=== PATIENT | male | born 1980 | race Caucasian/White ===

== ENCOUNTER 2024-10-14 12:21 | Emergency (ER) | payer OTHER, SELFPAY ==
[2024-10-14 12:24] VITALS: BP 131/86; PULSE 86; RESP 16; TEMP 36.9; O2SAT 97; BMI 33.7
--- OUTSIDE RECORDS SUMMARY | 2024-10-14 12:28 | XMS_ITS | Clinical Summary ---
Author Organization [facility] Address Unknown Care Team Providers Care Hand Stone Polisher Name Role Phone Jesse Pollack Primary Care Physician [phone] Allergies, Adverse Reactions, Alerts Substance Reaction Status Noted Date Resolved Date simvastiin Active morphine Active Pregabalin Active Penicillins Active Lyrica Active Imitrex Active Medications Medication Dose Frequency Directions Start Date End Octaviano e dicyclomine 0 1 capsule two t imes a day for 10 days promethazine 14 TAKE ONE TABLET BY MOUTH TWICE DAILY NEEDED FOR nausea Metronidazole 0 twice a day Take tablet by mouth twice a day cyproheptadine 0 1 tablet qd ondansetron 20 TAKE ONE TABLET BY MOUTH UNDER THE TONGUE EVERY 6 HOURS omeprazole 0 1 capsule qd cefdinir 0 1 capsule q 12 hrs for 7 days olanzapine 0 1 tablet qd promethazine 0 every six hours Take 1 table t by mouth every six hours as needed prazosin 0 1 capsule qd Problems Problem Status Start Date End Date Colitis (K59.9 - ICD-10) Active 09/22/2024 Early Satiety (R68.81 - ICD-10) Active Epigastric abdominal pain (R10.13 - ICD-10) Active Epigastric fullness (R19.8 - ICD-10) Active First degree hemorrhoids (K64.0 - ICD-10) Active 09/22/2024 Hx SBO (Z87.19 - ICD-10) Active LLQ abdominal pain (R10.32 - ICD-10) Active Nausea with Vomiting (R11.2 - ICD-10) Active Personal history of hyperpla stic colon polyps (Z86.0102 - ICD-10) Active Polyp of colon (K63.5 - ICD-10) Active Poor Prep (Z53.8 - ICD-10) Active RLQ abdominal pain (R10.31 - ICD-10) Active Anemia Anxiety/Depression Colon Polyps Gastroparesis GERD or reflux disease Hiatal hernia (K44.9 - ICD-10) PTSD Results * Pathology results from [facility] Component Value Range Date 001 SEE NOTES 09/22/2024 11:5 9 am PDT Encounters Encounter Performer Performer Role Encounter Diagnoses Location Date Consultation [id number] Sierra [id number] - Rose Dennis Epigastric fullness Hx SBO Nausea with Vomiting Personal history of hyperplastic colon polyps Poor Prep Early Satiety LLQ abdominal pain Epigastric abdominal pain RLQ abdominal pain [facility] [place] 09/22/19 08:30 am PDT Ambulatory Encounter [id number] Torres [place] 09/22/[place] 09:13 am PDT Ambulatory Encounter [id number] 09/22/19 09:14 am PDT Ambulatory Encounter [id number] [facility] 09/22/19 09:14 am PDT Colonoscopy [id number] Torres Colitis Polyp of colon First degree hemorrhoids [facility] 09/23/19 10:20 am PDT Ambulatory Encounter [id number] Sierra [facility] [address] 10/03/19 01:41 pm PDT Advance Directives Directive Description Verification Elise Bhagat , 09/22/2024 Procedures Procedure Date Appendectomy/Appendix bowel obstruction surgery Cholecystectomy/Gallbladder Hernia Repair kidney stones removed tonsillectomy Plan of Care Planned Activity Planned Date Dr. Villanueva spoke with and examined patie nt. Gastric Emptying Scan// FLOW [facility]// September @7:00AM// NPO INST, NO PAIN OR PPI 48 HRS PRIOR// BMI 34.21 Here today for ongoing abdom inal pain which he felt was better managed on Bupropion, defer this to mental health specialist. We will repeat Colonoscopy due to poor prep on last exam in January. We will schedule a GES for early satiety and nausea with vomiting. Follow up will be determined after procedure. Gastric Emptying Scan Pathology Requisition - [facility] Follow up path results. Follow up with Marleni HASTINGS in one month 10/22/2024 10:00 pm PDT Colonoscopy([id number]) Colonoscopy in 3 years 09/22/2027 10:00 pm PDT Colonoscopy([id number]) // [facility] // September 2:00PM// PREP RX GIVEN// BMI 34.21 Social History Observation Value Start Date End Date Marital Status Number of Previous Marriages Number of Gestations 0 Number of Pregnancies 0 Number of Abortions 0 Tobacco Use Current every day smoker Vital Signs Vital Sign Reading Time Taken Pulse 83 /min 09/22/2024 12:10 pm PDT Rhythm 09/22/2024 12:10 pm PDT Body Temperature [degF] 09/22/2024 12:1 0 pm PDT Respirations 18 /min 09/22/2024 12:10 pm PDT Oxygen saturation 96 % 09/22/2024 12: 10 pm PDT [id number] mmHg 09/22/2024 12:10 pm PDT Height 66 in 10/02/2024 01:41 pm PDT Weight 0 lbs 10/02/2024 01:41 pm PDT BMI (Body Mass Index) kg/m2 10/02/2024 01:41 pm PDT BP Systolic 137 mm[hg] 09/22/2024 12:10 pm PDT BP Diastolic 56 mm[hg] 09/22/2024 12:10 pm PDT Insurances Policy / Member / Group Numbers Plan Details Company Policy [place] [id number] / / Plan Type:Medicare Coverage Type:Primary [place] [employer] JULIAN ARCHIBALD
--- OUTSIDE RECORDS SUMMARY | 2024-10-14 12:28 | XMS_ITS | Clinical Summary ---
Author Organization [facility] Address Unknown Care Team Providers Care Window Maker Name Role Phone Unavailable Primary Care Physician Unavailab le Allergies, Adverse Reactions, Alerts Substance Reaction Status [...] Performer Role Encounter Diagnoses Location Date Consultation [id number] - Villanueva, Clint [id number] - Rose Dennis Epigastric fullness Hx SBO Nausea with Vomiting Personal history of hyperplastic colon polyps Poor Prep Early Satiety LLQ abdominal pain Epigastric abdominal pain RLQ abdominal pain [facility] [place] 09/22/19 08:30 am PDT Ambulatory Encounter [id number] Clint Chandra [place] 09/22/19 09:13 am PDT Ambulatory Encounter [id number] Clint Chandra [place] 09/22/19 09:14 am PDT Ambulatory Encounter [id number] [facility] 09:14 am PDT Colonoscopy [id number] Torres Colitis Polyp of colon First degree hemorrhoids [facility] 09/23/19 10:20 am PDT Ambulatory Encounter [id number] Sierra [facility] [address] 10/03/19 01:41 pm PDT Chief Complaint Abdominal pain Advance Directives Directive Description Verification Elise Bhagat , 09/22/2024 Procedures Procedure Date Appendectomy/Appendix bowel obstruction surgery Cholecystectomy/Gallbladder Hernia Repair kidney stones removed tonsillectomy Review Of Systems Constitutional: Denies of chronic f atigue, fever, weight loss. Integumentary: Denies of bruising, rash. Hematologic/Lymphatic: Denies of anemia , blood disorders, easy bleeding. Musculoskeletal: Denies of weakness, back pain, joint pain. ENMT: Denies of deafness, dizziness, mouth or throat sores, hoarseness. Respiratory: Denies of asthma, w heezing, cough, shortness of breath. Cardiovascular: Denies of chest yaya n, palpitations. Gastrointestinal: Complains of diar isael , constipation , heartburn , stomach cramps , nausea , vomiting , blood in stool , blood on the tissue paper , bloating , gas , trouble swallowing , abdominal pain . Denies of jaundice. Genitourinary: Complains of pablo ge in urine color , prostate problems . Denies of increased urinary frequency. Neurological: Denies of stroke, n umbness. Psychiatric: Complains of bad nerves , depression . . Physical Exam Constitutional: Appearance: Communication: communicates clearly , understands and verbalizes in Lao. Skin: Inspection: Palpation: no induration or sub cutaneous nodules noted in abdominal area. Eyes: Conjunctivae/lids: Pupils/irises: no scleral icterus. ENMT: External: Hearing: able to hear appropr iately. Lips/teeth/gums: moist mucus membrane s, lips and gums appear normal,good dentition. Oropharynx: normal tongue, hard and soft palate; posterior pharynx without erythema, exudate or lesions. Neck: Neck: Thyroid: no thyromegaly or ma sses visualized. Respiratory: Effort: Auscultation: no wheezes, rales or rhonchi,normal breath sounds,no rub noted. Cardiovascular: Auscultation: Peripheral: no edema,no varicosi ties or cyanosis. Gastrointestinal/Abdomen: Abdomen: Liver/Spleen: no ascites detected, no hepatosplenomegaly. Hernias: no hernias appreciat ed. Rectal: deferred. Extremities: RLE: LLE: Intact. Psychiatric: Judgment/insight: Orientation: appears to be orient ed to time, place and person. Memory: memory appears intac t, able to answer questions appropriately. Mood and affect: mood and affect appr opriate. Plan of Care Planned Activity Planned Date Dr. Villanueva spoke with and examined patie nt. Gastric Emptying Scan// FLOW [facility]// September @7:00AM// NPO INST, NO PAIN OR [...] Follow up will be determined after procedure. Follow up path results. Gastric Emptying Scan Pathology Requisition - [facility] Follow up with Marleni HASTINGS in one month 10/22/2024 10:00 pm PDT Colonoscopy([id number]) // [facility] // September 2:00PM// PREP RX GIVEN// BMI 34.21 Colonoscopy([id number]) Colonoscopy in 3 years 09/22/2027 10:00 pm PDT Social History Observation Value Start Date End [...] 96 % 09/22/2024 12: 10 pm PDT [id number] mmHg 09/22/2024 12:10 pm PDT Height 66 in 10/02/2024 01:41 pm PDT Weight 0 lbs 10/02/2024 01:41 pm PDT BMI (Body Mass Index) kg/m2 10/02/2024 01:41 pm PDT BP Systolic 137 mm[hg] 09/22/2024 12:10 pm PDT BP Diastolic 56 mm[hg] 09/22/2024 12:10 pm PDT Insurances Policy / Member / Group Numbers Plan Details Company Policy [employer] [id number] / / Plan Type:Medicare Coverage Type:Primary [place] CC[place] [employer] JULIAN ARCHIBALD
--- OUTSIDE RECORDS SUMMARY | 2024-10-14 12:28 | XMS_ITS | Clinical Summary ---
Author Organization [facility] Address Unknown Care Team Providers Care Stringed Instrument Repairer Name Role Phone Jesse Pollack Primary Care Physician [phone] Allergies, Adverse Reactions, Alerts Substance Reaction Status Noted Date Resolved Date simvastiin Active morphine Active Pregabalin Active Penicillins Active Lyrica Active Imitrex Active Medications Medication Dose Frequency Directions Start Date End Octaviano e oxycodone-acetaminoph en 12 1 tablet qd Levsin 50 tablet Take 1 tablet b y mouth every 4 hours as needed for pain or diarrhea. promethazine 14 TAKE ONE TABLET BY MOUTH TWICE DAILY NEEDED FOR nausea ondansetron 20 TAKE ONE TABLET BY MOUTH UNDER THE TONGUE EVERY 6 HOURS omeprazole 0 1 capsule qd prazosin 0 1 capsule qd Levsin 120 tablet Take 1 tablet b y mouth every 4 hours as needed for pain or diarrhea. 10/10/2024 dicyclomine 0 1 capsule two times a day for 10 days Metronidazole 0 twice a day Take tablet by mouth twice a day cyproheptadine 0 1 tablet qd cefdinir 0 1 capsule q 12 hrs for 7 days olanzapine 0 1 tablet qd promethazine 0 every six hours Take 1 table t by mouth every six hours as needed Problems Problem Status Start Date End Date Chronic Diarrhea (K59.1 - ICD-10) Active Colitis (K59.9 - ICD-10) Active 09/22/2024 Early Satiety (R68.81 - ICD-10) Active Epigastric abdominal pain (R10.13 - ICD-10) Active Epigastric abdominal tenderness (R10.816 - ICD-10) Act mikey Epigastric fullness (R19.8 - ICD-10) Active Fecal incontinence with urgency (R15.2 - ICD-10) Activ e First degree hemorrhoids (K64.0 - ICD-10) Active 09/22/2024 Hx SBO (Z87.19 - ICD-10) Active LLQ abdominal pain (R10.32 - ICD-10) Active Nausea with Vomiting (R11.2 - ICD-10) Active Personal history of hyperpla stic colon polyps (Z86.0102 - ICD-10) Active Polyp of colon (K63.5 - ICD-10) Active Poor Prep (Z53.8 - ICD-10) Active RLQ abdominal pain (R10.31 - ICD-10) Active RLQ abdominal tenderness (R10.813 - ICD-10) Active Anemia Anxiety/Depression Colon Polyps Gastroparesis GERD or reflux disease Hiatal hernia (K44.9 - ICD-10) PTSD Results * Pathology results from [facility] Component Value Range Date 001 SEE NOTES 09/22/2024 11:5 9 am PDT Encounters Encounter Performer Performer Role Encounter Diagnoses Location Date Consultation [id number] Torres [id number] - Rose Dennis Epigastric fullness Hx SBO Nausea with Vomiting Personal history of hyperplastic colon polyps Poor Prep Early Satiety LLQ abdominal pain Epigastric abdominal pain RLQ abdominal pain [facility] 09/22/19 08:30 am PDT Ambulatory Encounter [id number] [facility] 09/22/19 09:13 am PDT Ambulatory Encounter [id number] Torres [facility] 09/22/19 09:14 am PDT Ambulatory Encounter [id number] Torres [facility] 09/22/19 09:14 am PDT Colonoscopy [id number] Torres Colitis Polyp of colon First degree hemorrhoids [facility] 09/23/19 10:20 am PDT Ambulatory Encounter [id number] Torres [facility] 10/03/19 01:41 pm PDT Follow Up [id number] - Marleni Escalante [id number] Clint Chandra RLQ abdominal tenderness Fecal incontinence with urgency Epigastric abdominal tenderness Chronic Diarrhea [facility] 10/11/19 10:50 am PDT Advance Directives Directive Description Verification Elise Bhagat , 09/22/2024 Procedures Procedure Date Appendectomy/Appendix bowel obstruction surgery Cholecystectomy/Gallbladder Hernia Repair kidney stones removed tonsillectomy Plan of Care Planned Activity Planned Date CT abdomen/pelvis with contrast (22472 a nd Q9967) Pending findings of above co nsider upper GI series with SBFT vs low dose TCA therapy Dr. Villanueva spoke with and examined patie nt. TSH and free T4 (494118) IgA, quantitative (621171) Gastric Emptying Scan// FLOW [facility]// September @7:00AM// NPO INST, NO PAIN OR PPI 48 HRS PRIOR// BMI 34.21 He has early satiety, postpr andial epigastric pain, nausea, vomiting. Gastric emptying scan is scheduled for next week. He has multiple abdominal surgeries we will evaluate abdomen with CT scan Here today for ongoing abdom inal pain which he felt was better managed on Bupropion, defer this to mental health specialist. We will repeat Colonoscopy due to poor prep on last exam in January. We will schedule a GES for early satiety and nausea with vomiting. Follow up will be determined after procedure. Reviewed colonoscopy with th e patient c/w with adenomatous polyps. Repeat in three years. He has chronic diarrhea, abdominal pain with associate nausea/vomiting that is alleviated with a hot shower. Recommend cessation of marijuana. We will evaluate with GI PCR, thyroid studies. Recommend using Aguilera as needed for abdominal pain/diarrhea CBC (5009) Hgb A1c (802668) [facility] Gastrointestinal Pane l (stool box) CMP (402784) CRP (6627) Follow up path results. TTG IgA (493043) Gastric Emptying Scan He reports that he had THC c essation for 6 weeks without any benefit. Pathology Requisition - [facility] Follow up with Marleni HASTINGS in one month 10/22/2024 10:00 pm PDT Follow up with Dr. Villanueva in 2 months 10:00 pm PDT Colonoscopy([id number]) // [facility] // September 2:00PM// PREP RX GIVEN// BMI 34.21 Colonoscopy(37004) Colonoscopy in 3 years 09/22/2027 10:00 pm PDT Levsin Social History Observation Value Start Date End Date Marital Status Number of Previous Marriages Number of Gestations 0 Number of Pregnancies 0 Number of Abortions 0 Tobacco Use Current every day smoker Vital Signs Vital Sign Reading Time Taken Pulse 77 /min 10/10/2024 10:58 am PDT Rhythm 10/10/2024 10:58 am PDT Body Temperature 98.4 [degF] 10/10/2024 10:5 8 am PDT Respirations 18 /min 10/10/2024 10:58 am PDT Oxygen saturation 97 % 10/10/2024 10: 58 am PDT [id number] mmHg 10/10/2024 10:58 am PDT Height 66 in 10/10/2024 10:50 am PDT Weight 209.25 lbs 10/10/2024 10:50 am PDT BMI (Body Mass Index) 33.77 kg/m2 10/10/2024 10:50 am PDT BP Systolic 115 mm[hg] 10/10/2024 10:58 am PDT BP Diastolic 74 mm[hg] 10/10/2024 10:58 am PDT Insurances Policy / Member / Group Numbers Plan Details Company Policy [employer]oval [id number] / / Plan Type:Medicare Coverage Type:Primary [place] CC[place] [employer] JULIAN ARCHIBALD
--- OUTSIDE RECORDS SUMMARY | 2024-10-14 12:28 | XMS_ITS | Clinical Summary ---
Author Organization [facility] Address Unknown Care Team Providers Care Guest Experience Captain Name Role Phone Unavailable Primary Care Physician [...] Performer Role Encounter Diagnoses Location Date Consultation [id number] Torres [id number] - Jeannie Rose Epigastric fullness Hx SBO Nausea with Vomiting Personal history of hyperplastic colon polyps Poor Prep Early Satiety LLQ abdominal pain Epigastric abdominal pain RLQ abdominal pain [facility] 09/22/19 08:30 am PDT Ambulatory Encounter [id number] Torres [facility] 09/22/19 09:13 am PDT Ambulatory Encounter [id number] Torres [facility] 09/22/19 09:14 am PDT Ambulatory Encounter [id number] Torres [facility] 09/22/19 09:14 am PDT Colonoscopy [id number] Torres Colitis Polyp of colon First degree hemorrhoids [facility] 09/23/19 10:20 am PDT Ambulatory Encounter [id number] Torres [facility] 10/03/19 01:41 pm PDT Follow Up [id number] - Marleni Escalante [id number] Clint Chandra RLQ abdominal tenderness Fecal incontinence with urgency Epigastric abdominal tenderness Chronic Diarrhea [facility] 10/11/19 10:50 am PDT Ambulatory Encounter [id number] Torres [facility] 10/11/19 11:40 am PDT Chief Complaint abdominal pain, diarrhea Advance Directives Directive Description Verification Elise Bhagat [...] Denies of chest yaya n, palpitations. Gastrointestinal: Denies of diarrhea, constipation, heartburn, stomach cramps, nausea, vomiting, blood in stool, blood on the tissue paper, bloating, jaundice, gas, trouble swallowing, abdominal pain. Genitourinary: Denies of increased urinary frequency, change in urine color, prostate problems. Neurological: Denies of stroke, n umbness. Psychiatric: Denies of bad nerve s, depression. Physical Exam Constitutional: Appearance: Communication: communicates clearly , understands and verbalizes in Estonian. Skin: Inspection: Palpation: no induration or sub cutaneous nodules noted in abdominal area. Eyes: Conjunctivae/lids: Pupils/irises: no scleral icterus. Respiratory: Effort: Auscultation: no wheezes, rales or [...] Activity Planned Date CT abdomen/pelvis with contrast (09810 a nd Q9967) Pending findings of above co nsider upper GI series with SBFT vs low dose TCA therapy Dr. Villanueva spoke with and examined patie nt. TSH and free T4 (671125) IgA, quantitative (322173) Gastric Emptying Scan// FLOW [facility]// September @7:00AM// NPO INST, NO [...] using Aguilera as needed for abdominal pain/diarrhea CT abdomen/pelvis with contr ast (29915 and Q9967) [facility] pending insurance CBC (5009) Hgb A1c (748568) [facility] Gastrointestinal Pane l (stool box) CMP (227909) CRP (6627) Follow up path results. TTG IgA (257990) Gastric Emptying Scan He reports that he had THC c essation for 6 weeks without any benefit. Pathology Requisition - [facility] Follow up with Marleni HASTINGS in one month 10/22/2024 10:00 pm PDT Follow up with Dr. Villanueva in 2 months 10:00 pm PDT Colonoscopy(10358) // [facility] // September 2:00PM// PREP RX GIVEN// BMI 34.21 Colonoscopy([id number]) Colonoscopy in 3 years 09/22/2027 10:00 pm [...] 97 % 10/10/2024 10: 58 am PDT [id number] mmHg 10/10/2024 10:58 am PDT Height 66 in 10/10/2024 11:40 am PDT Weight 0 lbs 10/10/2024 11:40 am PDT BMI (Body Mass Index) kg/m2 10/10/2024 11:40 am PDT BP Systolic 115 mm[hg] 10/10/2024 10:58 am PDT BP Diastolic 74 mm[hg] 10/10/2024 10:58 am PDT Insurances Policy / Member / Group Numbers Plan Details Company Policy Sandoval [id number] / / Plan Type:Medicare Coverage Type:Primary [place] CC[place] [employer] JULIAN ARCHIBALD
--- OUTSIDE RECORDS SUMMARY | 2024-10-14 12:28 | XMS_ITS | Patient Health Record ---
Author Organization [facility] Address [address] [place] [address] Care Team Providers Care Ticket Taker Name Role Phone Rj DAVENPORT, Moses Primary Care Provider Unavail able SCOTTIE GEORGE Unavailable [phone] Allergies Allergen (clinical drug ingredient) Drug/Non Drug Allergy documented on EMR Reaction Allergy Type Onset Date Status pregabalin Lyrica Unknown Drug Allergy Active morphine Morphine Unknown Drug Allergy Active Penicillin Unknown Drug Allergy Active Results Component Value Reference Range Flag Notes Colonoscopy Reviewed date:03/07/2024 10:46:12 AM Interpretation: Performing Lab: Notes/Report: Colonoscopy Reviewed date:03/07/2024 10:46:26 AM Interpretation: Performing Lab:[facility], Phone - [facility] Notes/Report: Pathologist This case was electr onically signed by Belen Guerrero MD BodySite Colon Polyp SubSite Sigmoid Final Diagnosis - Hyperplastic polyp (s). - No dysplasia or malignancy identified. N CPTCode 96376;0753T ICDCode K63.5 Reason For Referral Reason consult/colon/egd Diagnosis 1 Irritable bowel synd shauna with diarrhea (K58.0) Referred Organization [facility] [employer] Referred Provider SCOTTIE GEORGE Referred Address [address] [facility],[address],[place], [id number], Referred Provider Specialty Gastroentero logy Referral Priority Routine Medications Medication SIG (Take, Route, Frequency, Duration) Notes Start Date End Date Status DULoxetine HCl Activ e Carafate Active Gabapentin Active Ciprofloxacin HCl 500 MG Tablet TAKE ONE TABLET BY MOUTH TWICE DAILY Oral; Duration: 7 Days Active oxyCODONE-Acetaminophen 10-325 MG Tablet TAKE 1 TABLET BY MOUTH EVERY 8 HOURS NEEDED FOR PAIN Oral; Duration: 4 Days Active Promethazine HCl 25 MG Tablet TAKE ONE TABLET BY MOUTH TWICE DAILY NEEDED FOR nausea Oral; Duration: 7 Days Active Cymbalta Active Immunizations Vaccine Route Administration Date Status Comme nts Flu vaccine no Preserv 3 and > Unknown 01/14/2024 Refus ed Social History Tobacco Use: Social History Observation Description Date Details (start date - stop date) Current Smoker NA - NA Social History Drug/Alcohol: Social Info Question Answer Notes AUDIT-C (Standard) Did you have a drink containing alcohol in the past year? No Points 0 Interpretation Negative Tobacco Use: Social Info Question Answer Notes Tobacco Control (Standard) Tobacco use: Current every day smoker Additional Findings: Tobacco user Light cigarett e smoker (1-9 cigs/day) Problems Problem Type SNOMED Code ICD Code Onset Dates Problem Status W/U Status Risk Notes Problem Irritable bowel syndrome with diarrhea (853163713) Irritable bowel syndrome with diarrhea (K58.0) Active confirmed Problem Change in bowel habit (85301703) Change in bowel habit (R19.4) Active confirmed Problem Diarrhea, unspecified (R19.7) Active confirmed Vital Signs Height 66 in 01/14/2024 Weight 210 lbs 01/14/2024 BMI 33.89 kg/m2 01/14/2024 Encounters Encounter Location Date Provider Diagnosis [facility] [email or web address] [id number] 01/14/2024 SCOTTIE GEORGE Diarrhea, unspecifie d R19.7 and Change in bowel habit R19.4 [facility] [address] [place] [id number] 02/21/2024 SCOTTIE GEORGE Sigmoid polyp D12.5 and Change in bowel habit R19.4 [facility] [employer] [facility] [address], [place] [id number] 02/24/2024 SCOTTIE GEORGE Assessments Encounter Date Diagnosis (ICD Code) Assessment Notes Treatment Notes Treatment Clinical Notes Section Notes 01/14/2024 Change in bowel habit (ICD-10 - R19.4) 01/14/2024 Diarrhea, unspecified (ICD-10 - R19.7) 02/21/2024 Change in bowel habit (ICD-10 - R19.4) 02/21/2024 Sigmoid polyp (ICD-10 - D12.5) Plan Of Treatment No Information Insurance Providers Payer Name Payer Address Payer Phone Subscriber Number Group Number Insured Name Patient Relationship to Insured Coverage Start Date Coverage End Date [employer] V[employer] [facility] [address] MARISELA MYERS [phone] [id number] Gerson Poon Self - patient is the insured Medical (General) History Medical History History ICD Code Asthma Anxiety Surgical History Surgery Date(Month/Year) EGD 10/2023 Gall bladder removal 2013 Tonsillectomy 2008 Bowel obstruction 2006 Bilateral inguinal hernia 2005 Appendectomy 2004 Colonoscopy
--- OUTSIDE RECORDS SUMMARY | 2024-10-14 12:28 | XMS_ITS | Clinical Summary ---
Author Organization [facility] Address Unknown Care Team Providers Care Sole Tacker Name Role Phone Jesse Pollack Primary Care Physician [phone] Allergies, Adverse Reactions, Alerts Substance Reaction Status [...] Performer Role Encounter Diagnoses Location Date Consultation [id number] Torres [id number] - [place] Epigastric fullness Hx SBO Nausea with Vomiting Personal history of hyperplastic colon polyps Poor Prep Early Satiety LLQ abdominal pain Epigastric abdominal pain RLQ abdominal pain [facility] 09/22/19 08:30 am PDT Ambulatory Encounter [id number] Torres [facility] 09/22/19 09:13 am PDT Ambulatory Encounter [id number] Torres [facility] 09/22/19 09:14 am PDT Ambulatory Encounter [id number] Torres [facility] 09/22/19 09:14 am PDT Colonoscopy [id number] Torres Colitis Polyp of colon First degree hemorrhoids [place] [facility] 09/23/19 10:20 am PDT Ambulatory Encounter [id number] Torres [facility] 10/03/19 01:41 pm PDT Follow Up [id number] - Marleni Escalante [id number] Clint Chandra RLQ abdominal tenderness Fecal incontinence with urgency Epigastric abdominal tenderness Chronic Diarrhea [facility] 10/11/19 10:50 am PDT Ambulatory Encounter [id number] Torres [facility] 10/11/19 11:40 am PDT Advance Directives Directive Description Verification Elise Bhagat , 09/22/2024 Procedures Procedure Date Appendectomy/Appendix bowel obstruction surgery Cholecystectomy/Gallbladder Hernia Repair kidney stones removed tonsillectomy Plan of Care Planned Activity Planned Date CT abdomen/pelvis with contrast (13575 a nd Q9967) Pending findings of above co nsider upper GI series with SBFT vs low dose TCA therapy Dr. Villanueva spoke with and examined patie nt. TSH and free T4 (642626) IgA, quantitative (345582) Gastric Emptying Scan// [facility]OW [facility]// September @7:00AM// NPO INST, NO PAIN [...] abdominal pain/diarrhea CT abdomen/pelvis with contr ast (91459 and Q9967) APPT 10/12/2024 2:30PM ARRIVAL TIME 2:15PM @ [facility] CBC (5009) Hgb A1c (374371) [facility] Gastrointestinal Pane l (stool box) CMP (559575) CRP (6627) Follow up path results. TTG IgA (899175) Gastric Emptying Scan He reports that he had THC c essation for 6 weeks without any benefit. Pathology Requisition - [facility] Follow up with Marleni HASTINGS in one month 10/22/2024 10:00 pm PDT Follow up with Dr. Villanueva in 2 months 10:00 pm PDT Colonoscopy(30791) // [facility] // September 2:00PM// PREP RX GIVEN// BMI 34.21 Colonoscopy(10678) Colonoscopy in 3 years 09/22/2027 10:00 pm [...] 97 % 10/10/2024 10: 58 am PDT [id number] mmHg 10/10/2024 10:58 am PDT Height 66 in 10/10/2024 11:40 am PDT Weight 0 lbs 10/10/2024 11:40 am PDT BMI (Body Mass Index) kg/m2 10/10/2024 11:40 am PDT BP Systolic 115 mm[hg] 10/10/2024 10:58 am PDT BP Diastolic 74 mm[hg] 10/10/2024 10:58 am PDT Insurances Policy / Member / Group Numbers Plan Details Company Policy [employer] [id number] / / Plan Type:Medicare Coverage Type:Primary [place] [facility] [employer]
--- OUTSIDE RECORDS SUMMARY | 2024-10-14 12:28 | XMS_ITS | Clinical Summary ---
Author Organization [facility] Address Unknown Care Team Providers Care Nurse Practitioner Physicians Assistant Name Role Phone Unavailable Primary Care Physician [...] Performer Role Encounter Diagnoses Location Date Consultation [id number] Torres [id number] - [place] Epigastric fullness Hx SBO Nausea with Vomiting Personal history of hyperplastic colon polyps Poor Prep Early Satiety LLQ abdominal pain Epigastric abdominal pain RLQ abdominal pain [facility] 09/22/19 08:30 am PDT Ambulatory Encounter [id number] Torres [facility] 09/22/19 09:13 am PDT Ambulatory Encounter [id number] Torres [facility] 09/22/19 09:14 am PDT Ambulatory Encounter [id number] Torres [facility] 09/22/19 09:14 am PDT Colonoscopy [id number] Torres Colitis Polyp of colon First degree hemorrhoids [place] [facility] 09/23/19 10:20 am PDT Ambulatory Encounter [id number] Torres [facility] 10/03/19 01:41 pm PDT Follow Up [id number] - Marleni Escalante [id number] Clint Chandra RLQ abdominal tenderness Fecal incontinence with urgency Epigastric abdominal tenderness Chronic Diarrhea [facility] 10/11/19 10:50 am PDT Chief Complaint abdominal pain, diarrhea [...] Activity Planned Date CT abdomen/pelvis with contrast (94725 a nd Q9967) Pending findings of above co nsider upper GI series with SBFT vs low dose TCA therapy Dr. Villanueva spoke with and examined patie nt. TSH and free T4 (531828) IgA, quantitative (858061) Gastric Emptying Scan// [facility]OW [facility]// September @7:00AM// NPO INST, NO PAIN [...] for abdominal pain/diarrhea CBC (5009) Hgb A1c (608751) [facility] Gastrointestinal Pane l (stool box) CMP (150544) CRP (6627) Follow up path results. TTG IgA (910822) Gastric Emptying Scan He reports that he had THC c essation for 6 weeks without any benefit. Pathology Requisition - [facility] Follow up with Marleni HASTINGS in one month 10/22/2024 10:00 pm PDT Follow up with Dr. Villanueva in 2 months 10:00 pm PDT Colonoscopy(89805) // [facility] // September 2:00PM// PREP RX GIVEN// BMI 34.21 Colonoscopy(54687) Colonoscopy in 3 years 09/22/2027 10:00 pm [...] 97 % 10/10/2024 10: 58 am PDT [id number] mmHg 10/10/2024 10:58 am PDT Height 66 in 10/10/2024 10:50 am PDT Weight 209.25 lbs 10/10/2024 10:50 am PDT BMI (Body Mass Index) 33.77 kg/m2 10/10/2024 10:50 am PDT BP Systolic 115 mm[hg] 10/10/2024 10:58 am PDT BP Diastolic 74 mm[hg] 10/10/2024 10:58 am PDT Insurances Policy / Member / Group Numbers Plan Details Company Policy [employer] [id number] / / Plan Type:Medicare Coverage Type:Primary [place] [facility] [employer]
--- OUTSIDE RECORDS SUMMARY | 2024-10-14 12:28 | XMS_ITS | Clinical Summary ---
Author Organization [facility] Address Unknown Care Team Providers Care Auto Electrician Name Role Phone Unavailable Primary Care Physician [...] Performer Role Encounter Diagnoses Location Date Consultation [id number] Sierra [id number] - Rose Dennis Epigastric fullness Hx SBO Nausea with Vomiting Personal history of hyperplastic colon polyps Poor Prep Early Satiety LLQ abdominal pain Epigastric abdominal pain RLQ abdominal pain [facility] 09/22/19 08:30 am PDT Ambulatory Encounter [id number] Torres [facility] 09/22/19 09:13 am PDT Ambulatory Encounter [id number] 09/22/19 09:14 am PDT Ambulatory Encounter [id number] Torres [facility] 09/22/19 09:14 am PDT Colonoscopy [id number] Torres Colitis Polyp of colon First degree hemorrhoids [place] [facility] 09/23/19 10:20 am PDT Ambulatory Encounter [id number] Torres [facility] 10/03/19 01:41 pm PDT Follow Up [id number] - Marleni Escalante [id number] Clint Chandra RLQ abdominal tenderness Fecal incontinence with urgency Epigastric abdominal tenderness Chronic Diarrhea [facility] 10/11/19 10:50 am PDT Ambulatory Encounter [id number] Torres [facility] 10/11/19 11:40 am PDT Advance Directives Directive Description Verification Elise Bhagat , 09/22/2024 Procedures Procedure Date Appendectomy/Appendix bowel obstruction surgery Cholecystectomy/Gallbladder Hernia Repair kidney stones removed tonsillectomy Review Of Systems Plan of Care Planned Activity Planned Date CT abdomen/pelvis with contrast (10505 a nd Q9967) Pending findings of above co nsider upper GI series with SBFT vs low dose TCA therapy Dr. Villanueva spoke with and examined patie nt. TSH and free T4 (490252) IgA, quantitative (758516) Gastric Emptying Scan// [facility]OW [facility]// September @7:00AM// NPO INST, NO [...] abdominal pain/diarrhea CT abdomen/pelvis with contr ast (77673 and Q9967) APPT 10/12/2024 2:30PM ARRIVAL TIME 2:15PM @ [facility] CBC (5009) Hgb A1c (048154) [facility] Gastrointestinal Pane l (stool box) CMP (084376) CRP (6627) Follow up path results. TTG IgA (206516) Gastric Emptying Scan He reports that he had THC c essation for 6 weeks without any benefit. Pathology Requisition - [facility] Follow up with Marleni HASTINGS in one month 10/22/2024 10:00 pm PDT Follow up with Dr. Villanueva in 2 months 10:00 pm PDT Colonoscopy(40702) // [facility] // September 2:00PM// PREP RX GIVEN// BMI 34.21 Colonoscopy(07782) Colonoscopy in 3 years 09/22/2027 10:00 pm [...] 97 % 10/10/2024 10: 58 am PDT [id number] mmHg 10/10/2024 10:58 am PDT Height 66 in 10/10/2024 11:40 am PDT Weight 0 lbs 10/10/2024 11:40 am PDT BMI (Body Mass Index) kg/m2 10/10/2024 11:40 am PDT BP Systolic 115 mm[hg] 10/10/2024 10:58 am PDT BP Diastolic 74 mm[hg] 10/10/2024 10:58 am PDT Insurances Policy / Member / Group Numbers Plan Details Company Policy [employer] [id number] / / Plan Type:Medicare Coverage Type:Primary [place] [facility] [employer]
--- OUTSIDE RECORDS SUMMARY | 2024-10-14 12:28 | XMS_ITS | Clinical Summary ---
Author Organization [facility] Address Unknown Care Team Providers Care Mma Fighter Name Role Phone Jesse Pollack Primary Care Physician [phone] Allergies, Adverse Reactions, Alerts Substance Reaction Status [...] Performer Role Encounter Diagnoses Location Date Consultation [id number] Torres [id number] - [place] Epigastric fullness Hx SBO Nausea with Vomiting Personal history of hyperplastic colon polyps Poor Prep Early Satiety LLQ abdominal pain Epigastric abdominal pain RLQ abdominal pain [facility] 09/22/19 08:30 am PDT Ambulatory Encounter [id number] Torres [facility] 09/22/19 09:13 am PDT Ambulatory Encounter [id number] Torres [facility] 09/22/19 09:14 am PDT Ambulatory Encounter [id number] Torres [facility] 09/22/19 09:14 am PDT Colonoscopy [id number] Torres Colitis Polyp of colon First degree hemorrhoids [place] [facility] 09/23/19 10:20 am PDT Ambulatory Encounter [id number] Torres [facility] 10/03/19 01:41 pm PDT Follow Up [id number] - Marleni Escalante [id number] Clint Chandra RLQ abdominal tenderness Fecal incontinence with urgency Epigastric abdominal tenderness Chronic Diarrhea [facility] 10/11/19 10:50 am PDT Ambulatory Encounter [id number] Torres [facility] 10/11/19 11:40 am PDT Advance Directives Directive Description Verification Elise Bhagat , 09/22/2024 Procedures Procedure Date Appendectomy/Appendix bowel obstruction surgery Cholecystectomy/Gallbladder Hernia Repair kidney stones removed tonsillectomy Plan of Care Planned Activity Planned Date CT abdomen/pelvis with contrast (69803 a nd Q9967) Pending findings of above co nsider upper GI series with SBFT vs low dose TCA therapy Dr. Villanueva spoke with and examined patie nt. TSH and free T4 (876465) IgA, quantitative (760922) Gastric Emptying Scan// [facility]OW [facility]// September @7:00AM// NPO INST, NO PAIN [...] abdominal pain/diarrhea CT abdomen/pelvis with contr ast (13705 and Q9967) [facility] pending insurance CBC (5009) Hgb A1c (136581) [facility] Gastrointestinal Pane l (stool box) CMP (639446) CRP (6627) Follow up path results. TTG IgA (968516) Gastric Emptying Scan He reports that he had THC c essation for 6 weeks without any benefit. Pathology Requisition - [facility] Follow up with Marleni HASTINGS in one month 10/22/2024 10:00 pm PDT Follow up with Dr. Villanueva in 2 months 10:00 pm PDT Colonoscopy(42122) // [facility] // September 2:00PM// PREP RX GIVEN// BMI 34.21 Colonoscopy(59647) Colonoscopy in 3 years 09/22/2027 10:00 pm [...] 97 % 10/10/2024 10: 58 am PDT [id number] mmHg 10/10/2024 10:58 am PDT Height 66 in 10/10/2024 11:40 am PDT Weight 0 lbs 10/10/2024 11:40 am PDT BMI (Body Mass Index) kg/m2 10/10/2024 11:40 am PDT BP Systolic 115 mm[hg] 10/10/2024 10:58 am PDT BP Diastolic 74 mm[hg] 10/10/2024 10:58 am PDT Insurances Policy / Member / Group Numbers Plan Details Company Policy [employer] [id number] / / Plan Type:Medicare Coverage Type:Primary [place] [facility] [employer]
--- NOTE | 2024-10-14 12:40 | XRR_ITS ---
PROCEDURE INFORMATION: Exam: XR Right Shoulder Exam date and time: 10/14/2024 12:52 PM Age: 44 years old Clinical indication: Pain; Shoulder; Right; Prior surgery; Surgery date: 6+ months; Surgery type: Rc; Additional info: RT shoulder pain after lifting injury x 2 days ago; Limited rom; HX RT rotator cuff repair. TECHNIQUE: Imaging protocol: Radiologic exam of the right shoulder. Views: 2 or more views. COMPARISON: No relevant prior studies available. FINDINGS: Bones/joints: Alignment is normal. Joint spaces are preserved. No acute fracture. Soft tissues: Visible soft tissues are unremarkable. XR/XR shoulder RT min 2V* [id number] IMPRESSION: No acute findings.
--- NOTE | 2024-10-14 13:48 | PC.PHAR ---
Pt is [facility] but knows his medications
--- NOTE | 2024-10-17 04:10 | ED_ITS ---
HPI - Extremity Problem General: Chief complaint: Extremity Injury, Upper Stated complaint: rt shoulder inj Time Seen by Provider: 10/14/24 12:31 History of Present Illness: 44-year-old male presents emergency room complaint of right shoulder pain. He was lifting some heavy objects felt a snapping sensation in the shoulder and since then he has not been able to AB duct. Patient previously has had injury to this shoulder and had surgery on it several years ago Associated symptoms: Deny chest pain, fever(s) or rash Related Data Home Medications ?Medication ?Instructions ?Recorded ?Confirmed hyoscyamine sulfate 0.125 mg See Rx Instructions .Rout e .COMPLEX 10/14/24 10/14/24 sublingual tablet omeprazole 40 mg capsule,delayed 40 mg PO DAILY 10/14/24 release prazosin 2 mg capsule 2 mg PO QPM 10/14/24 5 quetiapine 300 mg tablet (Seroquel) 300 mg PO DAILY 10/14/24 Previous Rx's ?Medication ?Instructions ?Recorded diclofenac sodium 75 mg 75 mg PO Q12H PRN pain #20 t abs 10/14/24 tablet,delayed release ondansetron HCl 4 mg tablet 4 mg PO Q6H PRN nausea and 10/14/24 vomiting #20 tabs Allergies Allergy/AdvReac Type Severity Reaction Status Date / Time morphine Allergy ALGY-Redness Verified 10/14/24 12:27 of Skin Penicillins Allergy Unknown Verified 10/14/24 12:27 pregabalin (From Lyrica) Allergy ADR-Seizure Verified 10/14/24 12:27 Review of Systems Const: Denies: fever(s) or chills Card: Denies: chest pain Resp: Denies: dyspnea GI: Denies: abdominal pain : Denies: dysuria, urinary frequency or urinary urgency Musc: Reports: joint pain; Denies: neck pain or back pain Skin/Breast: Denies: rash Physical Exam Const: COMMON NORMALS: no acute distress GENERAL APPEARANCE: cooperative and comfortable ORIENTATION/CONSCIOUSNESS: Yes awake, Yes oriented to person, Yes oriented to place and Yes oriented to time HENMT: COMMON NORMALS: normocephalic, atraumatic and hearing grossly normal bilaterally HEAD & SCALP: normocephalic and atraumatic Resp: COMMON NORMALS: normal respiratory effort, No retractions, No use of accessory muscles and clear to auscultation bilaterally AUSCULTATION: clear to auscultation bilaterally Cardio: COMMON NORMALS: regular rate, regular rhythm and No murmurs present (Cardio) RATE: regular rate RHYTHM: regular rhythm Extremity: OTHER: Examination of the shoulder difficult to examine due to pain at he attempted with active or passive range of motion to AB duct or externally rotate causes significant discomfort no pain with palpation over the distal clavicle. No pain with distraction of the AC joint. No pain at the biceps tendon groove. Neurovascularly upper extremity is intact with good radial and ulnar pulses and normal sensation good capillary refill no pain with palpation over the medial or lateral epicondyles Neuro: SENSORIUM/ORIENTATION: Yes oriented to person, Yes oriented to place and Yes oriented to time Skin: COMMON NORMALS: no rashes or lesions noted GENERAL SKIN EXAM: no rashes or lesions noted Course Vital Signs: Vital signs: Vital Signs Temperature 98.5 F 10/14/24 12:24 Pulse Rate 86 10/14/24 12:24 Respiratory Rate 16 10/14/24 12:24 Blood Pressure 131/86 10/14/24 12:24 Pulse Oximetry 97 10/14/24 12:24 Oxygen Delivery Me thod Room Air 10/14/24 12:24 MDM - Extremity (Nontraumatic) Medical Decision Making X-ray unremarkable patient still has difficulty with any range of motion we will place in a arm sling and refer to Ortho. Pain medications given. Lab Data Radiology Impressions Shoulder X-Ray 10/14/24 12:40 IMPRESSION: No acute findings. All radiology interpretation(s) finalized by discharge Discharge Plan Discharge Patient Disposition: Home Clinical Impression: Sprain of right shoulder Condition: Stable Prescriptions: New ondansetron HCl 4 mg tablet 4 mg PO Q6H PRN (Reason: nausea and vomiting) Qty: 20 0RF diclofenac sodium 75 mg tablet,delayed release (DR/EC) 75 mg PO Q12H PRN (Reason: pain) Qty: 20 0RF No Action quetiapine [Seroquel] 300 mg Tablet 300 mg PO DAILY omeprazole 40 mg Capsule,Delayed Release(Dr/Ec) 40 mg PO DAILY hyoscyamine sulfate 0.125 mg tablet, sublingual See Rx Instructions .ROUTE .COMPLEX Rx Instructions: DISSOLVE 1 TO 2 TABLETS UNDER THE TONGUE EVERY 4 HOURS NEEDED FOR STOMACH CRAMPS. prazosin 2 mg Capsule 2 mg PO QPM Discharge Orders: Discharge ED (Routine); Ordered 10/14/24 Ordered By: Joao Phillips Discharge Diet: Usual diet Discharge Activity: Limit activity as instructed Patient Instructions: Opioid Safety, Pain Management, Patient Portal & Annita Instructions Activity Restrictions/Additional Instructions: Thank you for choosing [facility] for your healthcare needs today. It is very important that you follow up as instructed or that you return to the Emergency Department should you have concerns or if your condition changes or worsens in any way. You were seen in the emergency room with right shoulder pain. X-ray was unremarkable for fracture. Suspect you may have sprained ligaments even possibly torn. You should follow-up with your primary care doctor and have it reevaluated when you return home you may need advanced imaging especially if it does not begin improving. You are given a sling and anti-inflammatories to use as needed. Print Language: Bangladeshi Coding Level of Care Code ED Rn Outpatient Surgery for Kurt Mcgarry
--- NOTE | 2024-10-17 08:47 | DCPLANNER ---
Message sent to Ortho for follow up- X-ray unremarkable patient still has difficulty with any range of motion we will place in a arm sling and refer to Ortho. Pain medications given
== END 2024-10-14 14:04 | disposition home or self-care (01) ==
PROVIDERS: Emergency Provider Family Medicine
DX: S43.401A Unspecified sprain of right shoulder joint, initial encounter (principal); X50.0XXA Overexertion from strenuous movement or load, initial encounter
CPT/HCPCS: 73030; 99283; A4565; E0114

== ENCOUNTER 2024-11-23 16:21 | Emergency (ER) | payer OTHER, SELFPAY ==
[2024-11-23 16:26] VITALS: BP 164/96; PULSE 100; RESP 18; TEMP 36.8; O2SAT 100; BMI 33.0
--- OUTSIDE RECORDS SUMMARY | 2024-11-23 16:30 | XMS_ITS | Clinical Summary ---
Author Organization [facility] Address [address] [place] [id number] Care Team Providers Care Manager Of Transportation Name Role Phone Unavailable Primary Care Provider Unavailabl e Encounters Date Type Department Care Team Description 11/01/2024 Lab Requisition [facility] [address] [place] [phone] Clint Villanueva MD Epigastric abdominal tenderness; Personal history of other diseases of the digestive system; Nausea with vomiting, unspecified; Early satiety; Fecal urgency from Last 3 Months Social History Tobacco Use Types Packs/Day Years Used Date Smoking Tobacco: Never Assessed Sex and Gender Information Value Date Recorded Sex Assigned at Not on file Legal Sex Male 8:23 AM CDT Gender Identity Not on file Sexual Orientation Not on file Plan of Treatment Health Maintenance Due Date Last Done Comments Hepatitis C Screening 1981 Lipid Panel 1981 MMR Vaccines (1 of 1 - Stand josé miguel series) 1982 Tobacco Cessation Screening 1994 Controlling High Blood Pressure 1999 DTaP,Tdap,and Td Vaccines (1 - Tdap) 01/04/2000 HPV Vaccines (1 - 3-dose SCD M series) 01/04/2008 Influenza Vaccine (#1) 2024 Zoster Vaccines (1 of 2) 2031 HIB Vaccines Aged Out No longer eligi ble based on patient's age to complete this topic Hepatitis A Vaccines Aged Out No long er eligible based on patient's age to complete this topic IPV Vaccines Aged Out No longer eligi ble based on patient's age to complete this topic Meningococcal B Vaccine Aged Out No l onger eligible based on patient's age to complete this topic Meningococcal Vaccine Aged Out No evangelina deidre eligible based on patient's age to complete this topic Pneumococcal Vaccine: Pediat rics (0 to 5 Years) and At-Risk Patients (6 to 64 Years) Aged Out No longer eligible b ased on patient's age to complete this topic RSV Under 20 Months Aged Out No longe r eligible based on patient's age to complete this topic Rotavirus Vaccines Aged Out No longer eligible based on patient's age to complete this topic Procedures Procedure Name Priority Date/Time Associated Diagnosis Comments GOLD, SERUM Routine 11/01/2024 8:22 AM CDT Epigastric abdominal tenderness Personal history of other diseases of the digestive system Nausea with vomiting, unspecified Early satiety Fecal urgency RED TOP Routine 11/01/2024 8:22 AM CDT Epigastric abdominal tenderness Personal history of other diseases of the digestive system Nausea with vomiting, unspecified Early satiety Fecal urgency HEMOGLOBIN A1C Routine 11/01/2024 8:22 AM CDT Epigastric abdominal tenderness Personal history of other diseases of the digestive system Nausea with vomiting, unspecified Early satiety Fecal urgency COMPREHENSIVE METABOLIC PANEL Routine 11/01/2024 8:22 AM CDT Epigastric abdominal tenderness Personal history of other diseases of the digestive system Nausea with vomiting, unspecified Early satiety Fecal urgency CBC Routine 11/01/2024 8:22 AM CDT Epigastric abdominal tenderness Personal history of other diseases of the digestive system Nausea with vomiting, unspecified Early satiety Fecal urgency C-REACTIVE PROTEIN Routine 11/01/2024 8: 22 AM CDT Epigastric abdominal tenderness Personal history of other diseases of the digestive system Nausea with vomiting, unspecified Early satiety Fecal urgency T4, FREE Routine 11/01/2024 8:22 AM CDT Epigastric abdominal tenderness Personal history of other diseases of the digestive system Nausea with vomiting, unspecified Early satiety Fecal urgency TSH Routine 11/01/2024 8:22 AM CDT Epigastric abdominal tenderness Personal history of other diseases of the digestive system Nausea with vomiting, unspecified Early satiety Fecal urgency TISSUE TRANSGLUTAMINASE, IGA Routine 11/01/2024 8:22 AM CDT Epigastric abdominal tenderness Personal history of other diseases of the digestive system Nausea with vomiting, unspecified Early satiety Fecal urgency IGA Routine 11/01/2024 8:22 AM CDT Epigastric abdominal tenderness Personal history of other diseases of the digestive system Nausea with vomiting, unspecified Early satiety Fecal urgency from Last 3 Months Results * Red Top (11/01/2024 8:22 AM CDT) Extra Tube Hold for add-ons. MANUAL METHOD 11/01/2024 5:01 PM CDT [facility] Comment:Auto resulted. Blood Venous blood specimen / Unknown 11/01/2024 8:22 AM CDT 11/01/2024 8:26 AM CDT Clint Villanueva MD LAB BLOOD ORDERABLES Final Result Performing Organization Address [facility] Co de Phone Number [facility] [address] [phone] * Tissue transglutaminase IgA antibody (11/01/2024 8:22 AM CDT) TTG, IGA 0.4 <7.0 U/ml 11/02/2024 2:19 PM CDT [facility] Comment: <7 Negative 7-10 Equivocal >10 Positive If equivocal, it is recommended the patient be retested 8 to 12 weeks after initial testing. Blood Venous blood specimen / Unknown 11/01/2024 8:22 AM CDT 11/01/2024 8:26 AM CDT us Clint Villanueva MD LAB BLOOD ORDERABLES Final Result [facility] [address] [phone] * Gold extra tube (11/01/2024 8:22 AM CDT) Extra Tube Hold for add-ons. MANUAL METHOD 11/01/2024 5:01 PM CDT [facility] Comment:Auto resulted. Blood Venous blood specimen / Unknown 11/01/2024 8:22 AM CDT 11/01/2024 8:26 AM CDT us Clint Villanueva MD LAB BLOOD ORDERABLES Final Result [facility] [address] [phone] * (ABNORMAL) CBC hemogram (11/01/2024 8:22 AM CDT) White Blood Cells 5.10 4.50 - 10.00 x10-3/uL 11/01/2024 1:02 PM CDT [facility] Red Blood Cells 4.06(L) 4.40 - 5.90 x10-6/uL 11/01/2024 1:02 PM CDT [facility] Hemoglobin 12.80(A) 13.00 - 18.00 g/dL 11/01/2024 1:02 PM CDT [facility] Hematocrit 36.8(A) 39.8 - 52.2 % 11/01/2024 1:02 PM CDT [facility] MCV 90.60 80.00 - 97.00 fL 11/01/2024 1:02 PM CDT [facility] MCH 31.60 26.00 - 34.00 pg 11/01/2024 1:02 PM CDT [facility] MCHC 34.90 31.00 - 36.00 g/dL 11/01/2024 1:02 PM CDT [facility] RDW 14.40 11.50 - 14.50 % 11/01/2024 1:02 PM CDT [facility] Platelets 199.0 150.0 - 450.0 x10-3/uL 11/01/2024 1:02 PM CDT [facility] MPV 8.70 7.40 - 10.40 fL 11/01/2024 1:02 PM CDT [facility] Blood Venous blood specimen / Unknown 11/01/2024 8:22 AM CDT 11/01/2024 8:26 AM CDT us Clint Villanueva MD LAB BLOOD ORDERABLES Final Result Performing Organization Address [facility] Co de Phone Number [facility] [address] [phone] * CRP, C-reactive protein (11/01/2024 8:22 AM CDT) C Reactive Protein 0.27 0 - 0.99 mg/dL 11/01/2024 1:52 PM CDT [facility] Blood Venous blood specimen / Unknown 11/01/2024 8:22 AM CDT 11/01/2024 8:26 AM CDT us Clint Villanueva MD LAB BLOOD ORDERABLES Final Result Performing Organization Address [facility] Co de Phone Number [facility] [address] [phone] * TSH (11/01/2024 8:22 AM CDT) TSH 0.48 0.34 - 4.50 U/mL DXI METHOD 11/01/2024 2:07 PM CDT [facility] Blood Venous blood specimen / Unknown 11/01/2024 8:22 AM CDT 11/01/2024 8:26 AM CDT us Clint Villanueva MD LAB BLOOD ORDERABLES Final Result Performing Organization Address [facility] Co de Phone Number [facility] [address] [phone] * Free T4 (free thyroxine) (11/01/2024 8:22 AM CDT) FT4 0.76 0.58 - 1.64 ng/dL DXI METHOD 11/01/2024 2:09 PM CDT [facility] Blood Venous blood specimen / Unknown 11/01/2024 8:22 AM CDT 11/01/2024 8:26 AM CDT us Clint Villanueva MD LAB BLOOD ORDERABLES Final Result [facility] [address] [phone] * Hemoglobin A1c (11/01/2024 8:22 AM CDT) [facility] Hemoglobin A1C 5.4 4 - 6 % 11/01/2024 4:07 PM CDT [facility] Mean Blood Glucose 108.28 mg/dL 11/01/2024 4:07 PM CDT [facility] Blood Venous blood specimen / Unknown 11/01/2024 8:22 AM CDT 11/01/2024 8:26 AM CDT Narrative [facility] - 11/01/2024 4:07 PM CDT The rules were played manually us Clint Villanueva MD LAB BLOOD ORDERABLES Final Result Performing Organization Address [facility] Co de Phone Number [facility] [address] [phone] * IgA immunoglobulin (11/01/2024 8:22 AM CDT) [facility] Immunoglobulin A 199.0 66.0 - 433.0 mg/dL 11/01/2024 1:52 PM CDT [facility] Blood Venous blood specimen / Unknown 11/01/2024 8:22 AM CDT 11/01/2024 8:26 AM CDT us Clint Villanueva MD LAB BLOOD ORDERABLES Final Result [facility] [address] [place] [phone] * Comprehensive metabolic panel (11/01/2024 8:22 AM CDT) [facility] BUN/Creatinine Ratio 13.92 6.0 - 20.0 mg/dL 11/01/2024 1:52 PM CDT [facility] eGFR >60.0 >60.0 mL/min/1.7 3m2 11/01/2024 1:52 PM [facility] Comment:Calculation based on the Chronic Kidney Disease Epidemiology Collaboration (CKD-EPI) equation refit without adjustment for race. If patient is under the age of 18, a GFR may not be calculated due to age. Globulin, Total 2.6 2.3 - 3.5 g/dL 11/01/2024 1:52 PM [facility] A/G Ratio 1.54 1.1 - 1.8 11/01/2024 1:52 PM [facility] Osmolality Calc 276.6 273 - 304 mosm/kg 11/01/2024 1:52 PM [facility] Sodium 139 136 - 145 mEq/L 11/01/2024 1:52 PM [facility] Potassium 4.7 3.5 - 5.1 mEq/L 11/01/2024 1:52 PM [facility] Chloride 105 98 - 107 mEq/L 11/01/2024 1:52 PM [facility] Carbon Dioxide 29.0 21 - 31 mEq/L 11/01/2024 1:52 PM [facility] Anion Gap 5 3 - 20 mEq/L 11/01/2024 1:52 PM [facility] BUN 11 7 - 25 mg/dL 11/01/2024 1:52 PM [facility] Creatinine, Serum 0.79 0.60 - 1.30 mg/dL 11/01/2024 1:52 PM [facility] Glucose 93 70 - 105 mg/dL 11/01/2024 1:52 PM [facility] Calcium 8.9 8.6 - 10.3 mg/dL 11/01/2024 1:52 PM [facility] AST (SGOT) 16 13 - 39 U/L 11/01/2024 1:52 PM [facility] ALT (SGPT) 15 7 - 52 IU/L 11/01/2024 1:52 PM [facility] Alkaline Phos 74 34 - 104 IU/L 11/01/2024 1:52 PM [facility] Protein, Total 6.6 6 - 8 gm/dL 11/01/2024 1:52 PM CDT [facility] Albumin 4.0 3.5 - 5.7 gm/dL 11/01/2024 1:52 PM CDT [facility] Bilirubin, Total 0.30 0.3 - 1 mg/dL 11/01/2024 1:52 PM CDT [facility] Blood Venous blood specimen / Unknown 11/01/2024 8:22 AM CDT 11/01/2024 8:26 AM CDT us Clint Villanueva MD LAB BLOOD ORDERABLES Final Result [facility] [address] [place] [phone] from Last 3 Months Insurance [facility]
--- NOTE | 2024-11-23 17:57 | CTR_ITS ---
PROCEDURE INFORMATION: Exam: CT Abdomen And Pelvis With Contrast Exam date and time: 11/23/2024 6:10 PM Age: 44 years old Clinical indication: Abdominal pain; Generalized; Prior surgery; Surgery date: 6+ months; Surgery type: Hernia, colon; Additional info: Right sided abd pain after direct trauma TECHNIQUE: Imaging protocol: Computed tomography of the abdomen and pelvis with contrast. Radiation optimization: All CT scans at this facility use at least one of these dose optimization techniques: automated exposure control; mA and/or kV adjustment per patient size (includes targeted exams where dose is matched to clinical indication); or iterative reconstruction. Contrast material: OMNIPAQUE 350; Contrast volume: 100 ml; Contrast route: INTRAVENOUS (IV); COMPARISON: No relevant prior studies available. RADIATION DOSE METRICS: Total DLP (mGy-cm): 838.49 FINDINGS: Lungs: The lung bases are clear. Heart: Heart size is within normal limits. There is no pericardial effusion or pericardial thickening. Liver: Small area of hypodensity adjacent to the gallbladder fossa most consistent with focal fatty infiltration. No hepatic masses are identified. Gallbladder and biliary ducts: The gallbladder is surgically absent. There is no ductal dilatation. Pancreas: The pancreas is normal. Spleen: The spleen is normal. Adrenal glands: The adrenal glands are normal. Kidneys and ureters: There is normal enhancement of the kidneys. No renal calcifications are identified. There is no hydronephrosis. Stomach and bowel: [id number] retained colonic stool. There is no large or small bowel obstruction. There is no evidence of bowel wall thickening. Appendix: A normal appendix is not identified. There is no secondary evidence of acute appendicitis. Intraperitoneal space: No inflammatory changes are identified. There is no free fluid or fluid collection seen. There is no pneumoperitoneum. Vasculature: Atherosclerotic calcifications of the aorta are present. No aneurysm is identified. Lymph nodes: No enlarged lymph nodes are identified. Urinary bladder: The bladder is decompressed and collapsed. No abnormality identified. Reproductive: The prostate is grossly unremarkable. Bones/joints: No acute osseous abnormalities are seen. Soft tissues: Evidence of prior bilateral inguinal hernia repair. CT/CT abdomen pelvis w con* [id number] IMPRESSION: 1. No acute intra-abdominal or pelvic process. 2. Other nonemergent findings above.
[2024-11-23] MEDS: iohexol 350 mg/mL 500 mL Btl (per mL) IV (18:15)
--- NOTE | 2024-11-23 18:15 | W.ED.ABDPA2 ---
HPI - Abdominal Pain General: Chief Complaint: Abdominal Pain Stated Complaint: Mid to Lower ABD paing going to back Time Seen by Provider: 11/23/24 17:44 Source: patient Mode of arrival: ambulatory Limitations: no limitations History of Present Illness: Patient is a 44-year-old male who presents to the emergency department complaining of right sided abdominal pain beginning yesterday. States that he was trying to move the fridge yesterday when it fell directly onto his abdomen, he was able to lift it out from underneath him but pain to his abdomen has worsened since and it goes into his back. 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 States that pain hurts with any movement, breathing, or coughing. Feels nauseous but no vomiting. Requesting something for pain and nausea at this time, denies any hematuria. No other injuries from the trauma. No bloating or distention. MD elicited complaint: abdominal pain Pertinent past history: other (SBO) Onset (ago): day(s) Pain Consistency: constant Location: RUQ and RLQ Severity: severe Quality: stabbing and sharp Radiation: back Exacerbating factors: movement Associated Symptoms: Reports nausea; Denies bloating, change in stool character, chills, constipation, diarrhea, dysuria, fever(s), hematochezia, hematuria and vomiting Related Data Home Medications ?Medication ?Instructions ?Recorded ?Confirmed hyoscyamine sulfate 0.125 mg See Rx Instructions .Route .COMPLEX 10/14/24 10/14/24 sublingual tablet omeprazole 40 mg capsule,delayed 40 mg PO DAILY 10/14/24 10/14/24 release prazosin 2 mg capsule 2 mg PO QPM 10/14/24 10/14/24 quetiapine 300 mg tablet (Seroquel) 300 mg PO DAILY 10/14/24 10/14/24 Previous Rx's ?Medication ?Instructions ?Recorded diclofenac sodium 75 mg 75 mg PO Q12H PRN pain #20 tabs 10/14/24 tablet,delayed release ondansetron HCl 4 mg tablet 4 mg PO Q6H PRN nausea and 10/14/24 vomiting #20 tabs hydrocodone 5 mg-acetaminophen 325 1 tab PO Q8H PRN pain #14 tabs 11/23/24 mg tablet Allergies Allergy/AdvReac Type Severity Reaction Status Date / Time morphine Allergy ALGY-Redness Verified 10/14/24 12:27 of Skin Penicillins Allergy Unknown Verified 10/14/24 12:27 pregabalin (From Lyrica) Allergy ADR-Seizure Verified 10/14/24 12:27 Review of Systems General: Reports: 10 or more systems reviewed and unremarkable except in HPI and below Const: Denies: fever(s), chills, change in appetite, change in weight or diaphoresis ENMT: Denies: throat pain or hoarseness Card: Denies: chest pain, palpitations or lightheadedness Resp: Denies: dyspnea, productive cough or wheezing GI: Reports: abdominal pain and nausea; Denies: vomiting, diarrhea, constipation, bloating, change in stool character or hematochezia : Denies: flank pain, difficulty urinating, dysuria, urinary frequency, urinary urgency or hematuria Musc: Denies: neck pain or back pain Skin/Breast: Denies: rash or new lesions Neuro: Denies: headache(s) or dizziness Physical Exam Const: COMMON NORMALS: patient oriented x3, healthy appearing, alert and well nourished GENERAL APPEARANCE: cooperative ORIENTATION/CONSCIOUSNESS: Yes awake OTHER: In distress from pain Neck/C-Spine: COMMON NORMALS: full ROM, supple, no meningeal signs and no JVD Resp: COMMON NORMALS: normal respiratory effort, No retractions, No use of accessory muscles and clear to auscultation bilaterally AUSCULTATION: clear to auscultation bilaterally, no crackles, no rales, no rhonchi and no wheezes Cardio: COMMON NORMALS: no JVD, regular rate, regular rhythm, S1 normal heart sound present, S2 normal heart sound present, No gallops present (Cardio), No clicks present (Cardio), No murmurs present (Cardio), No rub (Cardio) and Peripheral pulses 2+ throughout RATE: regular rate RHYTHM: regular rhythm HEART SOUNDS: S1 normal heart sound present and S2 normal heart sound present PERIPHERAL PULSES: Peripheral pulses 2+ throughout GI: COMMON NORMALS: Normal to inspection, nondistended, normoactive bowel sounds present, Soft to palpation, No hepatosplenomegaly present and no masses AUSCULTATION: Yes normoactive bowel sounds PALPATION: Yes Soft to palpation, No Guarding due to palpation present (GI), No Rigid due to palpation and Yes No hepatosplenomegaly present RECTAL EXAM: Yes deferred OTHER: Easily reproducible tenderness palpation to the right upper and right lower quadrant. No bloating or distention. : COMMON NORMALS: Yes no CVA tenderness BLADDER/KIDNEY EXAM: Yes no CVA tenderness Back/Pelvis: COMMON NORMALS: no CVA tenderness Extremity: COMMON NORMALS: normal to inspection and full ROM Neuro: COMMON NORMALS: patient oriented x3, moves all extremities, no focal motor deficits and no sensory deficits noted SENSORIUM/ORIENTATION: Yes alert MENINGEAL SIGNS: Yes no meningeal signs Psych: COMMON NORMALS: mental status grossly normal, cooperative and speech normal SPEECH: Yes normal speech Skin: COMMON NORMALS: no rashes or lesions noted GENERAL SKIN EXAM: no rashes or lesions noted Course Vital Signs: Vital signs: Vital Signs Temperature 98.2 F 11/23/24 16:26 Pulse Rate 76 11/23/24 20:23 Respiratory Rate 16 11/23/24 20:23 Blood Pressure 136/74 11/23/24 20:23 Pulse Oximetry 98 11/23/24 20:23 Oxygen Delivery Me thod Room Air 11/23/24 19:11 MDM - Abdominal Pain Medical Decision Making This patient presented for right sided abdominal pain after freezer dropped on him. Easily reproducible tenderness to palpation on exam however there was no significant bruising or signs of trauma. Vitals have been stable. Lab work was all reassuring and abdomen/pelvis CT does not show any acute intra-abdominal findings. Suspect hematoma of the abdominal muscles and discussed conservative therapy for home and strict return precautions given. Lab Data 11/23/24 18:47 11/23/24 18:47 Labs/Radiology: Radiology Impressions Abdomen/Pelvis CT 11/23/24 17:57 IMPRESSION: 1. No acute intra-abdominal or pelvic process. 2. Other nonemergent findings above. Laboratory Results WBC 6.43 10^3/uL (3.29-11.43) 11/23/24 18:47 RBC 3.86 10^6/uL (3.85-5.65) 11/23/24 18:47 Hgb 12.00 g/dL (11.27-16.99) 11/23/24 18:47 Hct 36.1 % (37-53) L 11/23/24 18:47 MCV 93.5 fl (82-101) 11/23/24 18:47 MCH 31.1 pg (27-33) 11/23/24 18:47 MCHC 33.2 g/dL (30-55) 11/23/24 18:47 RDW 13.6 % (12.1-15.1) 11/23/24 18:47 Plt Count 225 10^3/cmm (157-399) 11/23/24 18:47 MPV 9.7 fL (7.4-10.4) 11/23/24 18:47 Neut % (Auto) 46.8 % 11/23/24 18:47 Lymph % (Auto) 39.3 % 11/23/24 18:47 [place] % (Auto) 9.2 % 11/23/24 18:47 Eos % (Auto) 4.0 % 11/23/24 18:47 Baso % (Auto) 0.5 % 11/23/24 18:47 Neut # (Auto) 3.01 10^3/uL (1.8-7.7) 11/23/24 18:47 Lymph # (Auto) 2.5 10^3/uL (0.8-4.8) 11/23/24 18:47 [place] # (Auto) 0.6 10^3/uL (0.2-0.9) 11/23/24 18:47 Eos # (Auto) 0.3 10^3/uL (0.0-0.8) 11/23/24 18:47 Baso # (Auto) 0.0 10^3/uL (0.0-0.1) 11/23/24 18:47 Nucleated RBC % (auto) 0 % 11/23/24 18:47 Nucleated RBCs # 0.0 /100WBC 11/23/24 18:47 Sodium 140 mmol/L (136-145) 11/23/24 18:47 Potassium 4.4 mmol/L (3.5-5.1) 11/23/24 18:47 Chloride 105 mmol/L (98-107) 11/23/24 18:47 Carbon Dioxide 24 mmol/L (22-29) 11/23/24 18:47 Anion Gap 15.4 (5-19) 11/23/24 18:47 BUN 12 mg/dL (6-20) 11/23/24 18:47 Creatinine 0.8 mg/dL (0.7-1.2) 11/23/24 18:47 GFR Calculation 105.5 mL/min (90-130) 11/23/24 18:47 Glucose 95 mg/dL (65-115) 11/23/24 18:47 Calculated Osmolality 290 mOsm/kg (285-295) 11/23/24 18:47 Calcium 8.7 mg/dL (8.5-10.5) 11/23/24 18: Total Bilirubin 0.3 mg/dL (0.15-1.2) 11/23/24 18:47 AST 23 U/L (0-40) 11/23/24 18:47 ALT 20 U/L (0-41) 11/23/24 18: Alkaline Phosphatase 90 U/L (40-130) 11/23/24 18:47 Total Protein 7.1 g/dL (6.6-8.7) 11/23/24 18:47 Albumin 4.1 g/dL (3.5-5.2) 11/23/24 18:47 Globulin 3.0 g/dL (1.3-4.6) 11/23/24 18:47 Lipase 27 U/L (13-60) 11/23/24 18:47 Urine Color Yellow (Yellow) 11/23/24 18:09 Urine Appearance Clear (CLEAR) 11/23/24 18:09 Urine pH 6.5 (5-7) 11/23/24 18:09 Ur Specific [place] 1.020 (1.005-1.030) 11/23/24 18:09 Urine Protein Negative (Negative) 11/23/24 18:09 Urine Glucose (UA) Negative (Normal) 11/23/24 18:09 Urine Ketones Trace (Negative) 11/23/24 18:09 Urine Blood Negative (Negative) 11/23/24 18:09 Urine Nitrate Negative (Negative) 11/23/24 18:09 Urine Bilirubin Negative (Negative) 11/23/24 18: Urine Urobilinogen 1.0 mg/dL (Negative) 11/23/24 18:09 Ur Leukocyte Esterase Negative (Negative) 11/23/24 18: Amorphous Sediment Not Reportable 11/23/24 18:09 All radiology interpretation(s) finalized by discharge Discharge Plan Discharge Patient Disposition: Home Clinical Impression: Abdominal wall hematoma Qualifiers: Encounter type: initial encounter Qualified Code(s): S30.11XA - Contusion of abdominal wall, initial encounter Condition: Stable Prescriptions: New hydrocodone-acetaminophen 5-325 mg tablet 1 tab PO Q8H PRN (Reason: pain) Qty: 14 0RF No Action ondansetron HCl 4 mg tablet 4 mg PO Q6H PRN (Reason: nausea and vomiting) Qty: 20 0RF diclofenac sodium 75 mg tablet,delayed release (DR/EC) 75 mg PO Q12H PRN (Reason: pain) Qty: 20 0RF quetiapine [Seroquel] 300 mg Tablet 300 mg PO DAILY omeprazole 40 mg Capsule,Delayed Release(Dr/Ec) 40 mg PO DAILY hyoscyamine sulfate 0.125 mg tablet, sublingual See Rx Instructions .ROUTE .COMPLEX Rx Instructions: DISSOLVE 1 TO 2 TABLETS UNDER THE TONGUE EVERY 4 HOURS NEEDED FOR STOMACH CRAMPS. prazosin 2 mg Capsule 2 mg PO QPM Discharge Orders: Discharge ED (Routine); Ordered 11/23/24 Ordered By: Jarek Ramires Patient Instructions: Opioid Safety, Pain Management, Patient Portal & Annita Instructions Activity Restrictions/Additional Instructions: Abdominal Hematoma Discharge Diagnosis: Abdominal wall hematoma secondary to blunt trauma (freezer injury). CT imaging and laboratory studies are reassuring; no evidence of ongoing bleeding or visceral injury. Discharge Instructions: - Activity: - Limit strenuous activity and avoid heavy lifting for at least 1?2 weeks, or until pain and swelling have resolved. Gradual return to normal activity is expected as symptoms improve.[1]https://pubmed.ncbi.nlm.nih.gov/59073185[2]https://pubmed.ncbi.nlm.nih.gov/29692076[3]https://[email or web address]/media/[email or web address]_ms_gisemanual_final__.pdf - Rest as needed, especially if pain increases with movement. - Pain Management: - Drury (hydrocodone/acetaminophen) 5/325 mg prescribed for breakthrough pain. Use the lowest effective dose and avoid exceeding the maximum daily acetaminophen dose (3,000?4,000 mg/day, accounting for all sources). - Consider non-opioid analgesics (e.g., acetaminophen alone) for mild pain, if not contraindicated. - Monitor for side effects of opioids, including constipation, sedation, and respiratory depression. - Monitoring: - Observe for increasing abdominal pain, swelling, bruising, or firmness at the hematoma site. - Monitor for signs of hemodynamic compromise: dizziness, lightheadedness, palpitations, syncope, or hypotension. - Watch for signs of infection: redness, warmth, fever, or purulent drainage. - Follow-Up: - Schedule outpatient follow-up within 7?10 days, or sooner if symptoms worsen. - Repeat imaging is not routinely required unless clinical deterioration occurs. - When to Seek Immediate Care: - Sudden increase in pain or swelling. - Signs of shock: fainting, rapid heartbeat, low blood pressure. - New or worsening abdominal distension. - Signs of infection at the hematoma site. Additional Considerations: - Hematomas are typically self-limited and resolve over days to weeks with conservative management. - Surgical or interventional procedures (e.g., embolization, drainage) are reserved for cases with ongoing bleeding, hemodynamic instability, or failure of conservative management. - If anticoagulation is indicated for other reasons, reassess risk/benefit prior to resumption. Patient Education: - Explain the benign nature of most abdominal wall hematomas and the expected course of recovery. - Emphasize the importance of adherence to activity restrictions and pain management plan. Contact Information: - Provide direct contact for questions or concerns and instructions for urgent/emergent evaluation. Print Language: [place] Coding Level of Care Code ED Pin S[employer] Bagger for Kurt Mcgarry
[2024-11-23 19:04] LABS: Hematocrit 36.1 % (37-53); Hemoglobin 12.00 g/dL (11.27-16.99); Mean Corpuscular HGB Conc 33.2 g/dL (30-55); Mean Corpuscular Hemoglobin 31.1 pg (27-33); Mean Corpuscular Volume 93.5 fl (82-101); Nucleated Red Blood Cells % 0 %; Platelet Count 225 10^3/cmm (157-399); Red Blood Count 3.86 10^6/uL (3.85-5.65); White Blood Count 6.43 10^3/uL (3.29-11.43)
[2024-11-23] MEDS: fentaNYL 50 mcg/mL INJ 2mL IVP ×2 (19:04→20:10)
[2024-11-23] MEDS: ondansetron 2 mg/ML SDV 2 mL 4 MG IVP (19:04)
[2024-11-23 19:11] VITALS: BP 136/74; PULSE 76; RESP 16; O2SAT 98
[2024-11-23 19:29] LABS: Add Urine Microscopic? NO
[2024-11-23 19:32] LABS: Glucose Urine UA Negative (Normal); Nitrate Urine Negative (Negative); Specific Gravity, Urine 1.020 (1.005-1.030)
[2024-11-23 19:34] LABS: Alanine Aminotransferase 20 U/L (0-41); Albumin Level 4.1 g/dL (3.5-5.2); Alkaline Phosphatase 90 U/L (40-130); Anion Gap 15.4 (5-19); Aspartate Amino Transferase 23 U/L (0-40); Blood Urea Nitrogen 12 mg/dL (6-20); Calcium 8.7 mg/dL (8.5-10.5); Carbon Dioxide 24 mmol/L (22-29); Chloride 105 mmol/L (98-107); Creatinine Clr Calc Pharmacy 127.1010; Globulin 3.0 g/dL (1.3-4.6); Glucose 95 mg/dL (65-115); Lipase 27 U/L (13-60); Osmolality Calculated 290 mOsm/kg (285-295); Potassium 4.4 mmol/L (3.5-5.1); Sodium 140 mmol/L (136-145); Total Protein 7.1 g/dL (6.6-8.7)
[2024-11-23 19:44] LABS: Charge for UA Resulting for Rev
[2024-11-23 20:23] VITALS: BP 136/74; PULSE 76; RESP 16; O2SAT 98
== END 2024-11-23 20:24 | disposition home or self-care (01) ==
PROVIDERS: Emergency Provider Physician Assistant
DX: S30.11XA Contusion of abdominal wall, initial encounter (principal); W20.8XXA Other cause of strike by thrown, projected or falling object, initial encounter
CPT/HCPCS: 36415; 74177; 80053; 81003; 83690; 85025; 96374; 96375; 96376; 99285; J2405; J3010

== ENCOUNTER 2024-12-18 08:10 | Outpatient (CLI) | payer OTHER, SELFPAY ==
--- NOTE | 2024-12-18 08:14 | CT_ITS ---
WS: [id number] CT ABDOMEN AND PELVIS WITH AND WITHOUT CONTRAST HISTORY: ABD PAIN TECHNIQUE: Unenhanced 5 mm axial imaging first performed through the abdomen. Post contrast imaging through the abdomen and pelvis. Oral contrast has not been provided. Sagittal and coronal reformats are submitted. All CT scans at [facility] use at least one of these dose optimization techniques: automated exposure control; mA and/or kV adjustment per patient size (includes targeted exams where dose is matched to clinical indication); or iterative reconstruction. CONTRAST: Omnipaque 350; 95 mL IV. DLP: 1190.63 mGy.cm COMPARISON: 11/23/2024 Lung bases are clear. Normal size heart. Small hiatal hernia. Liver, spleen, pancreas, adrenals and kidneys are negative. Prior cholecystectomy. No renal obstruction. Normal size aorta. Very minimal atherosclerotic plaque within the aorta. No GI tract obstruction. There is no colitis. Prior appendectomy. Prior hernia repair. There are a few small retroperitoneal lymph nodes which are stable since 11/23/2024. No enlarged pathological lymph nodes. Urinary bladder is minimally distended. No free fluid in the pelvis. No soft tissue or subcutaneous masses or hematomas. No acute fractures. Possible fracture involving the RIGHT lateral 10th rib. This is nondisplaced. No obvious callus formation. No hematoma at this location. Correlate with area of pain. CT/CT abdomen pelvis wo/w [id number] IMPRESSION: 1. No acute abdomen or pelvic abnormalities are identified. 2. Prior cholecystectomy. 3. No colitis. 4. No ascites or adenopathy. 5. Indeterminate for a nondisplaced RIGHT lateral 10th rib fracture. Correlate to area of pain. If there is no pain this is probably normal cortical irregula rity.
[2024-12-18] MEDS: iohexol 350 mg/mL 500 mL Btl (per mL) IV (08:52)
== END 2024-12-18 08:11 | disposition home or self-care (01) ==
LOC: RAD 08:10
PROVIDERS: Visit Provider Nurse Practitioner Family
DX: R10.9 Unspecified abdominal pain (principal); Z90.49 Acquired absence of other specified parts of digestive tract; K44.9 Diaphragmatic hernia without obstruction or gangrene; Z98.890 Other specified postprocedural states; K68.9 Other disorders of retroperitoneum
CPT/HCPCS: 74178